=== PATIENT | female | born 1970 | race African-American/Black ===

== ENCOUNTER 2017-10-02 15:24 | Emergency (ER) | payer OTHER ==
[~2017-10-02] VITALS: Ht 180.3 cm; Wt 145.0 kg
[2017-10-02 17:29] LABS: BASOPHILS % 0.7 % (0.0-2.0); EOSINOPHILS % 2.1 % (0.0-5.0); HEMATOCRIT. 34.5 % (36.0-48.0); LYMPHOCYTES % 25.1 % (20.0-50.0); MEAN CORPUSCULAR HEMOGLOBIN 24.6 pg (28.0-32.0); MEAN CORPUSCULAR VOLUME 77.7 fL (81.0-99.0); MEAN PLATELET VOLUME 8.4 fl (7.4-10.4); MONOCYTES % 5.3 % (2.0-8.0); NEUTROPHILS % 66.8 % (40.0-76.0); PLATELET 340 x1000/uL (130-400); RED BLOOD CELL COUNT 4.44 mill/uL (4.2-5.4); RED CELL DISTRIBUTION WIDTH 17.1 % (11.6-14.6)
[2017-10-02 17:36] LABS: PROTHROMBIN TIME 10.6 sec (9.4-11.6)
[2017-10-02 17:40] LABS: CHLORIDE 105 mEq/L (98-107)
[2017-10-02] MEDS ORDERED: KETOROLAC 30MG/ML VIAL IV ONE (17:45)
[2017-10-02] MEDS ORDERED: IBUPROFEN 600MG TABLET PO ONE (18:00)
[2017-10-02 20:48] VITALS: BP 120/54
== END 2017-10-02 20:51 | disposition home or self-care (01) ==
LOC: ER 15:55
DX: R07.89 Other chest pain (principal); R51 Headache
CPT/HCPCS: 36415; 71045; 80053; 81025; 83690; 84484; 85025; 85610; 93005; 99285